=== PATIENT | female | born 1990 | race African-American/Black ===

== ENCOUNTER 2020-01-16 13:16 | Emergency (ER) | payer MEDICAID, OTHER ==
[~2020-01-16] VITALS: Ht 160 cm; Wt 65.8 kg
[~2020-01-16 13:16] MED LIST: ACETAMINOP500 MG/51 ORAL; ATARAX25 MG ORAL; CALCIUM 500 +1 EAC3 PO; CALCIUM500 M3 PO; FERROUS SULFAT325 MG ORAL; FOLIC ACID1 MG ORAL; METOCLOPRAM5 MG/1 M1 IJ; NKM; PNV-OB WITH DH1 EACH PO; PRENATABS RX T1 EACH PO; REGLAN10 MG ORAL
[2020-01-16] MEDS ORDERED: VERAPAMIL ER180 MG PO (13:30)
[2020-01-16] MEDS ORDERED: Methocarbamol 750mg tab ORAL ONE (13:45)
[2020-01-16 13:55] VITALS: BP 175/102
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
[2020-01-16] MEDS ORDERED: Ketorolac 30mg Inj IM ONE (14:30)
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
[2020-01-16] MEDS ORDERED: ROBAXIN-500MG ORAL (14:38)
[2020-01-16] MEDS ORDERED: IBU800 MG PO (14:38)
[2020-01-16] MEDS ORDERED: LIDODERM700 M1 TOPIC (14:38)
[2020-01-16 14:50] VITALS: BP 150/89
--- NOTE | 2020-01-16 14:50 | NUR ---
ER DISCHARGE NOTE: Patient is cleared to be discharged per ERMD, pt is aox4, on room air, with stable vital signs. pt was given dc and prescription instructions, pt was able to verbalize understanding, pt is able to ambulate with steady gait. pt took all belongings.
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
== END 2020-01-16 15:00 | disposition home or self-care (01) ==
LOC: EMR 13:32
DX: S16.1XXA Strain of muscle, fascia and tendon at neck level, initial encounter (principal); V43.52XA Car driver injured in collision with other type car in traffic accident, initial encounter; Y92.410 Unspecified street and highway as the place of occurrence of the external cause; I10 Essential (primary) hypertension
CPT/HCPCS: 72040; 81025; 96372; J1885; Z7502; 99283

== ENCOUNTER → 2020-10-21 | Emergency (ER) | payer OTHER ==
[~2020-10-21] VITALS: Ht 160 cm; Wt 66.2 kg
[~2020-10-21] MED LIST changes: +ACETAMINOPHEN-1 EAC1 ORAL; +IBU800 MG PO; +Ketorolac 30mg Inj IV ONE; +LIDODERM700 M1 TOPIC; +ROBAXIN-500MG ORAL; +VERAPAMIL ER180 MG PO
--- NOTE | 2020-10-21 22:31 | Emergency Room Report ---
History of Present Illness General Chief Complaint: Abdominal Pain Source: Patient Present Illness HPI . a 30-year-old female with no past medical history. She presents with chief complaint abdominal pain. Most of pain is the lower abdominal area. Pain is sharp and crampy. Radiate upward. Pain is 9 out of 10. Has been ongoing for a week. Denies any dysuria frequency. No hematuria. This is worse with palpation. Better with rest. She does not know if she is or not. Denies any other complaint. No nausea vomiting or diarrhea. 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 COVID-19 Screening: Negative COVID-19 COVID-19 Testing Source: clinic Patient History Past Medical History: see triage record, old chart reviewed Past Surgical History: appy Pertinent Family History: none Social History: Denies: smoking Last Menstrual Period: 2x in sep 2020 Now: No Immunizations: other Reviewed Nursing Documentation: PMH: Agreed; PSxH: Agreed Nursing Documentation-PMH Past Medical History: No History, Except For Hx Cardiac Problems: No Hx Hypertension: Yes Hx Pacemaker: No Hx Asthma: No Hx COPD: No Hx Diabetes: No Hx Cancer: No Hx Gastrointestinal Problems: No Hx Dialysis: No Hx Neurological Problems: No Hx Cerebrovascular Accident: No Hx Seizures: No Review of Systems Eye: Denies: eye pain, blurred vision ENT: Denies: ear pain, nose congestion, throat swelling Respiratory: Denies: cough, shortness of breath Cardiovascular: Denies: chest pain, palpitations Gastrointestinal: Reports: abdominal pain; Denies: diarrhea, nausea, vomiting Musculoskeletal: Denies: back pain, joint pain Skin: Denies: rash Neurological: Denies: headache, numbness Endocrine: Denies: increased thirst, increased urine Hematologic/Lymphatic: Denies: easy bruising All Other Systems: negative except mentioned in HPI Physical Exam Vital Signs Date Time Temp Pulse Resp B/P (MAP) Pulse Ox O2 Delivery O2 Flow Rate FiO2 10/21/20 22:10 98.2 79 16 137/91 (106) 98 Room Air Vitals unremarkable Sp02 EP Interpretation: reviewed, normal General Appearance: well appearing, no apparent distress, alert Head: normocephalic, atraumatic Eyes: bilateral eye PERRL, bilateral eye EOMI ENT: hearing grossly normal, normal pharynx Neck: full range of motion, supple, no meningismus Respiratory: chest non-tender, lungs clear, normal breath sounds Cardiovascular #1: regular rate, rhythm, no murmur Gastrointestinal: normal bowel sounds, non tender, no mass, no organomegaly, no bruit, non-distended Musculoskeletal: back normal, normal range of motion, gait/station normal Psychiatric: mood/affect normal Medical Decision Making Diagnostic Impression: Primary Impression: Threatened in early ER Course This patient presents with pelvic pain. level is very early. Ultrasound showed a gestational sac. No evidence of any ectopic. No evidence of any infection. Her blood type on previous visit is O+. patient looks comfortable. Will discharge home. CT/MRI/US Diagnostic Results CT/MRI/US Diagnostic Results : Imaging Test Ordered: Pelvic ultrasound Impression Read by radiologist. Early gestational sac. No ectopic. Last Vital Signs Date Time Temp Pulse Resp B/P (MAP) Pulse Ox O2 Delivery O2 Flow Rate FiO2 10/21/20 22:10 98.2 79 16 137/91 (106) 98 Room Air Status: improved Disposition: HOME, SELF-CARE Condition: Stable Scripts Acetaminophen With Codeine (T#3) (TYLENOL #3 TAB*) Y Tab 1 TAB ORAL Q8H PRN for For Pain, #20 TAB Prov: Davide Pond MD 10/22/20 Additional Instructions: Follow-up with your doctor before referral to see DISASTER RECOVERY COORDINATOR. You may need repeat blood work or ultrasound in a week. Return if worse. Davide Pond MD Oct 21, 2020 22:31
[2020-10-21 22:48] VITALS: BP 137/91
--- NOTE | 2020-10-21 22:51 | NUR ---
ED Nurse Note: Patient came in with complaints of abdominal pain x1 week denies nausea, vomiting, and diarrhea urine and blood specimen sent to lab
[2020-10-21 22:54] LABS: BASOPHILS % (AUTO) 1.2 % (0.0-2.0); BILIRUBIN, URINE NEGATIVE (NEGATIVE); EOSINOPHILS % (AUTO) 1.8 % (0.0-3.0); GLUCOSE, URINE (UA) NEGATIVE (NEGATIVE); HEMATOCRIT 34.6 % (37.0-47.0); HEMOGLOBIN 11.5 G/DL (12.0-16.0); KETONES,URINE 1+ (NEGATIVE); LEUKOCYTE ESTERASE ,URINE 1+ (NEGATIVE); LYMPHOCYTES % (AUTO) 36.6 % (20.0-45.0); MEAN CORPUSCULAR VOLUME 98 FL (80-99); MONOCYTES % (AUTO) 5.5 % (1.0-10.0); NEUTROPHILS % (AUTO) 54.9 % (45.0-75.0); NITRITE,URINE NEGATIVE (NEGATIVE); PH,URINE 7 (4.5-8.0); PLATELET COUNT 188 K/UL (150-450); PROTEIN,URINE 1+ (NEGATIVE); RED BLOOD COUNT 3.53 M/UL (4.20-5.40); RED CELL DISTRIBUTION WIDTH 12.6 % (11.6-14.8); UROBILINOGEN,URINE 8 MG/DL (0.0-1.0); WHITE BLOOD COUNT 5.3 K/UL (4.8-10.8)
[2020-10-21 22:57] LABS: APPEARANCE,URINE SLIGHTLY CLOUDY; COLOR,URINE YELLOW
[2020-10-21 23:04] LABS: ANION GAP 6 mmol/L (5-15); BLOOD UREA NITROGEN 14 mg/dL (7-18); CALCIUM 8.6 MG/DL (8.5-10.1); CARBON DIOXIDE 27 MMOL/L (21-32); CHLORIDE 105 MMOL/L (98-107); POTASSIUM 3.4 MMOL/L (3.5-5.1); SODIUM 138 MMOL/L (136-145)
[2020-10-21 23:09] LABS: ALANINE AMINOTRANSFERASE 16 U/L (12-78); ALBUMIN 3.4 G/DL (3.4-5.0); ALBUMIN/GLOBULIN RATIO 1.2 (1.0-2.7); ALKALINE PHOSPHATASE 71 U/L (46-116); ASPARTATE AMINO TRANSFERASE 17 U/L (15-37); BILIRUBIN,TOTAL 0.3 MG/DL (0.2-1.0)
[2020-10-22 01:06] VITALS: BP 128/86
--- NOTE | 2020-10-22 01:06 | NUR ---
ER DISCHARGE NOTE: Patient is cleared to be discharged per ERMD, pt is aox4, on room air, with stable vital signs. pt was given dc and prescription instructions, pt was able to verbalize understanding, pt id band and iv site removed without complications. pt is able to ambulate with steady gait. pt took all belongings.
--- NOTE | 2020-10-22 01:20 | Diagnostic Imaging Report ---
EXAM: US First Trimester , Transabdominal and Transvaginal CLINICAL HISTORY: PAIN TECHNIQUE: Real-time transabdominal and transvaginal obstetrical ultrasound of the maternal pelvis and a first trimester with image documentation. Transvaginal imaging was used for better evaluation of the fetus and adnexa. COMPARISON: No relevant prior studies available. FINDINGS: Gestation: Suspected tiny gestational sac within the endometrium which is too small to accurately date. Placenta/amniotic fluid: Cannot be adequately evaluated due to the early gestational age. Uterus/cervix: Unremarkable. No myometrial mass. Ovaries: Unremarkable. No mass. Free fluid: Trace free fluid in the pelvis. IMPRESSION: Suspected tiny gestational sac within the endometrium which is too small to accurately date. Correlate with beta-hCG and short interval follow-up if indicated.
== END | disposition home or self-care (01) ==
LOC: EMR 22:43
DX: O20.0 Threatened abortion (principal); Z3A.00 Weeks of gestation of pregnancy not specified; Z90.89 Acquired absence of other organs; I10 Essential (primary) hypertension
CPT/HCPCS: 36415; 76801; 76817; 80053; 81003; 81025; 83690; 84702; 85025; 96361; 96374; J1885; J7030; Z7502; 99284

== ENCOUNTER 2020-11-16 15:35 | Emergency (ER) | payer OTHER ==
[~2020-11-16] VITALS: Ht 160 cm; Wt 67.6 kg
[~2020-11-16 15:35] MED LIST changes: -Ketorolac 30mg Inj IV ONE
[2020-11-16 15:40] VITALS: BP 157/99
--- NOTE | 2020-11-16 15:40 | NUR ---
Patient reported to the ER with c/o nausea and vomiting x 2+weeks. Patient reported that she is 8 weeks and most recently began to have nausea and vomiting and unable to hold solid food down. No significant medical history. Has not vomited since coming into the ED. Continuing to monitor.
[2020-11-16] MEDS ORDERED: Metoclopramide 10mg/2ml Inj IVP ONE (16:00)
[2020-11-16 16:09] LABS: APPEARANCE,URINE CLOUDY; BILIRUBIN, URINE NEGATIVE (NEGATIVE); GLUCOSE, URINE (UA) 1+ (NEGATIVE); KETONES,URINE 4+ (NEGATIVE); LEUKOCYTE ESTERASE ,URINE 1+ (NEGATIVE); NITRITE,URINE NEGATIVE (NEGATIVE); PH,URINE 6 (4.5-8.0); PROTEIN,URINE 1+ (NEGATIVE); UROBILINOGEN,URINE 1 MG/DL (0.0-1.0)
[2020-11-16 16:21] LABS: BASOPHILS % (AUTO) 2.2 % (0.0-2.0); EOSINOPHILS % (AUTO) 0.6 % (0.0-3.0); HEMATOCRIT 38.7 % (37.0-47.0); HEMOGLOBIN 13.2 G/DL (12.0-16.0); LYMPHOCYTES % (AUTO) 28.7 % (20.0-45.0); MEAN CORPUSCULAR VOLUME 95 FL (80-99); MONOCYTES % (AUTO) 6.9 % (1.0-10.0); NEUTROPHILS % (AUTO) 61.6 % (45.0-75.0); PLATELET COUNT 246 K/UL (150-450); RED BLOOD COUNT 4.06 M/UL (4.20-5.40); RED CELL DISTRIBUTION WIDTH 12.2 % (11.6-14.8); WHITE BLOOD COUNT 5.7 K/UL (4.8-10.8)
[2020-11-16 16:26] LABS: ANION GAP 11 mmol/L (5-15); BLOOD UREA NITROGEN 12 mg/dL (7-18); CALCIUM 9.9 MG/DL (8.5-10.1); CARBON DIOXIDE 26 MMOL/L (21-32); CHLORIDE 103 MMOL/L (98-107); CREATININE 0.9 MG/DL (0.55-1.30); POTASSIUM 3.3 MMOL/L (3.5-5.1); SODIUM 139 MMOL/L (136-145)
[2020-11-16 16:30] LABS: ALANINE AMINOTRANSFERASE 21 U/L (12-78); ALBUMIN 4.5 G/DL (3.4-5.0); ALBUMIN/GLOBULIN RATIO 1.2 (1.0-2.7); ALKALINE PHOSPHATASE 42 U/L (46-116); ASPARTATE AMINO TRANSFERASE 16 U/L (15-37); BILIRUBIN,TOTAL 0.6 MG/DL (0.2-1.0)
[2020-11-16 16:33] LABS: COLOR,URINE YELLOW
--- NOTE | 2020-11-16 17:43 | NUR ---
Type and Cross specimen collected and sent to lab
--- NOTE | 2020-11-16 18:04 | Emergency Room Report ---
History of Present Illness General Chief Complaint: Vomiting Present Illness HPI 30-year-old female who is A1 and reports being 8 weeks here complaining of multiple bouts of nonbloody emesis. Patient has also been experiencing right lower quadrant abdominal pain with diffuse mild lower abd ominal pain post emesis. Denies any diarrhea or constipation. Reports that went to ULTRASONOGRAPHER earlier and was told to come to the emergency room for IV hydration. Reports that she takes Reglan and Zofran at home however they are not helping her. Patient was told by ULTRASONOGRAPHER not to take vitamins as a cause her nausea to be worse. Denies fever and chills, cough and congestion all other URI symptoms. Appears to be stable, with stable vital signs. Denies any chest pain, pleuritic chest pain or calf tenderness. Complains of palpitation only when vomiting. Denies drug use or alcohol intake. Allergies: Coded Allergies: No Known Allergies (Unverified , 09/14/13) COVID-19 Screening Contact w/high risk pt: No Recent Travel to affected area: No Experienced COVID-19 symptoms?: No COVID-19 Testing performed DESK OFFICER: No COVID-19 Screening: Negative COVID-19 Patient History Past Medical History: see triage record Past Surgical History: none Pertinent Family History: none Now: Yes - 8 weeks Immunizations: UTD Reviewed Nursing Documentation: PMH: Agreed; PSxH: Agreed Nursing Documentation-PMH Hx Cardiac Problems: No Hx Hypertension: Yes Hx Pacemaker: No Hx Asthma: No Hx COPD: No Hx Diabetes: No Hx Cancer: No Hx Gastrointestinal Problems: No Hx Dialysis: No Hx Neurological Problems: No Hx Cerebrovascular Accident: No Hx Seizures: No Review of Systems All Other Systems: negative except mentioned in HPI Physical Exam Vital Signs Date Time Temp Pulse Resp B/P (MAP) Pulse Ox O2 Delivery O2 Flow Rate FiO2 11/16/20 15:40 98.2 79 20 157/99 (118) 97 Room Air Sp02 EP Interpretation: reviewed, normal General Appearance: alert, GCS 15, non-toxic, mild distress Head: normocephalic, atraumatic Eyes: bilateral eye normal inspection, bilateral eye PERRL ENT: hearing grossly normal, normal pharynx, no angioedema, normal voice Neck: supple Respiratory: no respiratory distress, no retraction, no accessory muscle use Cardiovascular #1: regular rate, rhythm, no edema, no murmur Gastrointestinal: normal bowel sounds, non tender, soft, no mass, no organomegaly, no peritonitis, no bruit, non-distended, no guarding, no hernia, no pulsatile mass, no rebound Rectal: deferred Genitourinary: no CVA tenderness Musculoskeletal: back normal, no calf tenderness Neurologic: alert, motor strength/tone normal, oriented x3, sensory intact, responsive, speech normal Psychiatric: judgement/insight normal, memory normal, mood/affect normal, no suicidal/homicidal ideation Skin: no rash Lymphatic: no adenopathy Medical Decision Making PA Attestation All my diagnosis and treatment plans were reviewed ad discussed with my supervising physician Dr. Brown Diagnostic Impression: Primary Impression: Hyperemesis gravidarum Additional Impression: Marijuana use ER Course 30-year-old female who is A1 and reports being 8 weeks here complaining of multiple bouts of nonbloody emesis. Patient has also been experiencing right lower quadrant abdominal pain with diffuse mild lower abdominal pain post emesis. Denies any diarrhea or constipation. Reports that went to ULTRASONOGRAPHER earlier and was told to come to the emergency room for IV hydration. Reports that she takes Reglan and Zofran at home however they are not helping her. Patient was told by ULTRASONOGRAPHER not to take vitamins as a cause her nausea to be worse. Denies fever and chills, cough and congestion all other URI symptoms. Appears to be stable, with stable vital signs. Denies any chest pain, pleuritic chest pain or calf tenderness. Complains of palpitation only when vomiting. Denies drug use or alcohol intake. Ddx considered but are not limited to: Ectopic , threatened , UTI, pyelonephritis, hyper emesis gravidarum, Vital signs: are WNL, pt. is afebrile H&PE are most consistent with: Hyperemesis gravidarum, marijuana use ORDERS: OB ultrasound, CBC, CMP, hCG quantitative, type and screen, UA, Keflex, Phenergan, Pepcid ED INTERVENTIONS: NS bolus, Reglan, Phenergan, Pepcid DISCHARGE: At this time pt. is stable for d/c to home. Will provide printed patient care instructions, and any necessary prescriptions. Care plan and follow up instructions have been discussed with the patient prior to discharge. Take m edication as directed, follow-up with ULTRASONOGRAPHER 24 to 48 hours, increase oral hydration especially electrolyte water, if worsening symptoms return to the emergency room CT/MRI/US Diagnostic Results CT/MRI/US Diagnostic Results : Imaging Test Ordered: OB US Impression COMPARISON: 10/22/2020 FINDINGS: Gestation: Ultrasound age 8 weeks 5 days; EGA by LMP 8 weeks 3 days. heart rate 166 bpm CRL 1.91 cm, 8 weeks 3 days. Yolk sac 0.4 cm ANTELMO: Ultrasound ANTELMO 06/23/2021 LMP. ANTELMO 06/24/2021 Placenta/amniotic fluid: Cannot be adequately evaluated due to the early gestational age. Uterus/cervix: Uterus 12 x 7 x 7 cm No myometrial mass. Ovaries: Right ovary 3 cm Left ovary 4 cm No mass. Free fluid: No free fluid. Other findings: Patient refused endovaginal evaluation. No acute abnormality seen. MSD 4.06 cm, 9 weeks 0 days. IMPRESSION: 1. Patient refused endovaginal evaluation. 2. Single viable intrauterine gestation. 3. No acute abnormality seen. 4. Ultrasound age 8 weeks 5 days; EGA by LMP 8 weeks 3 days. 5. Otherwise unremarkable study. Last Vital Signs Date Time Temp Pulse Resp B/P (MAP) Pulse Ox O2 Delivery O2 Flow Rate FiO2 11/16/20 16:00 Room Air 11/16/20 15:40 98.2 79 20 157/99 (118) 97 Disposition: HOME, SELF-CARE Condition: Stable Referrals: NON PHYSICIAN (PCP) Patient Instructions: Cannabis Use Disorder, Hyperemesis Gravidarum Additional Instructions: Take medication as directed, follow-up with ULTRASONOGRAPHER 24 to 48 hours, increase oral hydration especially electrolyte water, if worsening symptoms return to the emergency room avoid marijuana use Kwadwo Shaw Nov 16, 2020 18:04
[2020-11-16] MEDS ORDERED: PHENERGAN25 M1 ORAL (18:12)
[2020-11-16] MEDS ORDERED: CEPHALEXIN500 MG ORAL (18:12)
--- NOTE | 2020-11-16 18:29 | NUR ---
Patient cleared for discharge. Discharge instructions understood.
== END 2020-11-16 18:20 | disposition home or self-care (01) ==
LOC: EMR 15:55
DX: O21.0 Mild hyperemesis gravidarum (principal); F12.90 Cannabis use, unspecified, uncomplicated; I10 Essential (primary) hypertension; Z3A.08 8 weeks gestation of pregnancy
CPT/HCPCS: 36415; 76801; 80053; 80307; 81003; 84702; 85025; 86850; 86900; 86901; 96361; 96372; 96374; 96375; J2550; J2765; S0028; Z7502; 99284